=== PATIENT | female | born 1945 | race Caucasian/White ===

== ENCOUNTER 2019-05-17 11:03 | Inpatient (IN) ==
[2019-05-17] MEDS ORDERED: Naloxone 0.4 MG/ML INJ IVP PRN (17:44)
[2019-05-17] MEDS ORDERED: Ondansetron ODT 4 MG TAB.RAPDIS SL PRN (17:44)
[2019-05-17] MEDS ORDERED: 0.9 % Sodium Chloride 1,000 ML IVC SCH (17:45)
[2019-05-17] MEDS ORDERED: 0.9 % Sodium Chloride 1,000 ML IVC ONE (17:47)
[2019-05-17] MEDS ORDERED: Ipratropium/Albuterol Neb 3 ML IH PRN (17:47)
[2019-05-17] MEDS ORDERED: *HR* LORazepam 2 MG/ML VIAL IVP PRN ×3 (18:09)
[2019-05-17 18:51] LABS: Alanine Aminotransferase 24 Units/L (7-52); Albumin 2.9 g/dL (3.5-5.7); Alkaline Phosphatase 148 Units/L (34-104); Aspartate Amino Transferase 16 Units/L (13-39); BUN/Creatinine Ratio 12 (6-26); Bilirubin,Total 0.6 mg/dL (0.3-1.0); Blood Urea Nitrogen 45 mg/dL (8-23); Calcium 7.9 mg/dL (8.6-10.3); Carbon Dioxide 18 mEq/L (23-29); Chloride 95 mEq/L (98-107); Ethanol < 10 mg/dL (Less than 10); Globulin 2.8 g/dL (2.4-3.5); Glucose 111 mg/dL (70-105); Osmolality,Calculated 270 (280-300); Potassium 3.8 mEq/L (3.5-5.1); Sodium 124 mEq/L (136-145); Total Protein 5.7 g/dL (6.4-8.9); eGFR For African Americans 14 (> 60); eGFR For Non-African Americans 11 (> 60)
[2019-05-17 19:11] LABS: Thyroid Stimulating Hormone 7.229 mcIU/mL (0.340-5.600)
[2019-05-17 19:39] LABS: Hematocrit 35.5 % (35.3-44.9); Hemoglobin 12.4 g/dL (11.5-15.4); Lymphocytes # 0.5 K/mcL (0.6-4.6); Mean Corpuscular HGB Conc 34.9 g/dL (31.6-35.5); Mean Corpuscular Hemoglobin 30.3 pg (28.0-33.3); Mean Corpuscular Volume 86.8 fL (83.0-100.0); Mean Platelet Volume 11.1 fL (9.4-12.4); Platelet Count 218 K/mcL (140-400); Red Blood Count 4.09 M/mcL (3.82-4.97); Red Cell Distribution Width 14.3 % (11.5-14.5); White Blood Count 12.8 K/mcL (4.3-11.1)
[2019-05-17 20:04] LABS: Eosinophils # 0.5 K/mcL (0.0-0.6); Monocytes # 0.8 K/mcL (0.0-1.3); Platelet Estimate Normal (Normal)
[2019-05-17] MEDS ORDERED: cephALEXin 500 MG CAPSULE PO SCH (21:00)
[2019-05-18 03:16] LABS: Amphetamine Screen,Urine Negative ng/mL (Cutoff=1000); Barbiturate Screen,Urine Negative ng/mL (Cutoff=200); Benzodiazepines Screen,Urine Negative ng/mL (Cutoff=200); Cannabinoid Screen,Urine Negative ng/mL (Cutoff = 50); Cocaine Screen,Urine Negative ng/mL (Cutoff= 300); Opiate Screen,Urine Negative ng/mL (Cutoff=300); Phencyclidine Screen,Urine Negative ng/mL (Cutoff=25)
[2019-05-18 03:21] LABS: Bilirubin,Urine Negative (Negative); Blood,Urine Moderate (Negative); Clarity,Urine Cloudy (Clear); Color,Urine Yellow (Yellow); Glucose,Urine (UA) Normal (Normal); Ketones,Urine Negative (Negative); Leukocyte Esterase,Urine Large (Negative); Nitrite,Urine Negative (Negative); Protein,Urine 30 mg/dL (Neg-Trace); Specific Gravity,Urine 1.009 (1.010-1.025); Urobilinogen,Urine Normal (Normal)
[2019-05-18 03:22] LABS: Hyaline Casts,Urine None Seen per lpf (None-Few); Squamous Epithelial Cell,Urine Many per lpf (None-Few); WBC,Urine TNTC per hpf (0-3)
[2019-05-18 03:32] LABS: Amorphous Sediment,Urine Few (Few); Bacteria,Urine Few per hpf (None-Few)
[2019-05-18] MEDS: *HR* Heparin 5,000 UNIT/ML VIAL SQ SCH ×2 (05:13→18:26)
[2019-05-18 07:08] LABS: Hematocrit 34.1 % (35.3-44.9); Hemoglobin 11.9 g/dL (11.5-15.4); Mean Corpuscular HGB Conc 34.9 g/dL (31.6-35.5); Mean Corpuscular Hemoglobin 31.5 pg (28.0-33.3); Mean Corpuscular Volume 90.2 fL (83.0-100.0); Mean Platelet Volume 11.3 fL (9.4-12.4); Platelet Count 201 K/mcL (140-400); Red Blood Count 3.78 M/mcL (3.82-4.97); Red Cell Distribution Width 15.1 % (11.5-14.5); White Blood Count 11.7 K/mcL (4.3-11.1)
[2019-05-18 07:27] LABS: Calcium 7.5 mg/dL (8.6-10.3); Potassium 3.7 mEq/L (3.5-5.1)
[2019-05-18] MEDS ORDERED: 0.9 % Sodium Chloride 1,000 ML IVC ONE (08:14)
[2019-05-18] MEDS: Thiamine (B-1) 100 MG TABLET PO SCH (08:46)
[2019-05-18] MEDS: Vitamin B Complex/Vit C/Vit E 1 EACH TABLET PO SCH (08:47)
[2019-05-18] MEDS: Folic Acid 1 MG TABLET PO SCH (08:47)
[2019-05-18] MEDS: MOM Conc 10 ML UD.LIQ PO PRN (08:47)
[2019-05-18 09:09] LABS: Thyroid Stimulating Hormone 8.857 mcIU/mL (0.340-5.600)
[2019-05-18] MEDS: cefTRIAXone 1,000 MG in Water for inj. (sterile) 10 ML IVP SCH (10:45)
[2019-05-18] MEDS: predniSONE 20 MG TABLET PO SCH (12:57)
[2019-05-18] MEDS: 0.9 % Sodium Chloride 1,000 ML IVC SCH ×2 (13:00→20:21)
[2019-05-19 01:30] LABS: Albumin 2.5 g/dL (3.5-5.7); Bilirubin,Total 0.3 mg/dL (0.3-1.0); Calcium 7.4 mg/dL (8.6-10.3); Globulin 2.6 g/dL (2.4-3.5); Potassium 4.3 mEq/L (3.5-5.1); Total Protein 5.1 g/dL (6.4-8.9)
[2019-05-19] MEDS: 0.9 % Sodium Chloride 1,000 ML IVC SCH ×3 (04:34→16:18)
[2019-05-19] MEDS: *HR* Heparin 5,000 UNIT/ML VIAL SQ SCH ×2 (04:38→16:18)
[2019-05-19] MEDS: Thiamine (B-1) 100 MG TABLET PO SCH (08:38)
[2019-05-19] MEDS: Vitamin B Complex/Vit C/Vit E 1 EACH TABLET PO SCH (08:38)
[2019-05-19] MEDS: Folic Acid 1 MG TABLET PO SCH (08:38)
[2019-05-19] MEDS: predniSONE 20 MG TABLET PO SCH (08:39)
[2019-05-19] MEDS: cefTRIAXone 1,000 MG in Water for inj. (sterile) 10 ML IVP SCH (09:46)
[2019-05-19] MEDS ORDERED: Albuterol 2.5 MG/3 ML NEBULIZER IH PRN (12:09)
[2019-05-19] MEDS: Sodium Bicarbonate 75 MEQ in 0.45 % Sodium Chloride 1,000 ML IVC SCH ×2 (12:47→21:44)
[2019-05-19] MEDS: Ipratropium/Albuterol Neb 3 ML IH SCH ×3 (14:35→20:13)
[2019-05-19] MEDS ORDERED: Sennosides/Docusate Sodium TABLET PO PRN (16:31)
[2019-05-19 17:58] LABS: Protein/Creatinine Ratio,Urine 0.64 mg/mg (0.00-0.20); Sodium, Urine 35.3 mEq/L
[2019-05-20] MEDS: Ipratropium/Albuterol Neb 3 ML IH SCH ×7 (00:15→23:21)
[2019-05-20 05:03] LABS: INR 1.2; Prothrombin Time 13.7 Seconds (9.4-12.1)
[2019-05-20 05:06] LABS: Activated Partial Thrombo Time 30.7 Seconds (26.0-36.0)
[2019-05-20 05:17] LABS: Albumin 2.6 g/dL (3.5-5.7); Bilirubin,Total 0.3 mg/dL (0.3-1.0); Calcium 7.5 mg/dL (8.6-10.3); Globulin 2.7 g/dL (2.4-3.5); Potassium 3.5 mEq/L (3.5-5.1); Rheumatoid Factor 11 IU/mL (Less than 14); Total Protein 5.3 g/dL (6.4-8.9)
[2019-05-20 05:18] LABS: Complement C3 100 mg/dL (87-200)
[2019-05-20 05:56] LABS: Hepatitis B Surface Antigen Nonreactive (Nonreactive)
[2019-05-20 06:25] LABS: Hepatitis C Virus Antibody Nonreactive (Nonreactive)
[2019-05-20 06:26] LABS: Hepatitis B Core IgM Nonreactive (Nonreactive)
[2019-05-20 06:27] LABS: Hepatitis A Antibody IgM Nonreactive (Nonreactive)
[2019-05-20] MEDS: *HR* Heparin 5,000 UNIT/ML VIAL SQ SCH ×2 (06:58→15:18)
[2019-05-20] MEDS: 0.9 % Sodium Chloride 1,000 ML IVC SCH ×2 (07:25→15:20)
[2019-05-20] MEDS: cefTRIAXone 1,000 MG in Water for inj. (sterile) 10 ML IVP SCH (10:17)
[2019-05-20] MEDS: Vitamin B Complex/Vit C/Vit E 1 EACH TABLET PO SCH (10:18)
[2019-05-20] MEDS: Thiamine (B-1) 100 MG TABLET PO SCH (10:18)
[2019-05-20] MEDS: Folic Acid 1 MG TABLET PO SCH (10:18)
[2019-05-20] MEDS: Sodium Bicarbonate 75 MEQ in 0.45 % Sodium Chloride 1,000 ML IVC SCH (15:13)
[2019-05-20] MEDS: MOM Conc 10 ML UD.LIQ PO PRN (20:28)
[2019-05-21] MEDS: Sodium Bicarbonate 75 MEQ in 0.45 % Sodium Chloride 1,000 ML IVC SCH (01:01)
[2019-05-21 02:52] LABS: Magnesium 2.5 mg/dL (1.6-2.6); Phosphorous 4.2 mg/dL (2.7-4.5)
[2019-05-21 02:54] LABS: Albumin 2.5 g/dL (3.5-5.7); Albumin/Globulin Ratio 0.9 (1.1-2.2); Bilirubin,Total 0.3 mg/dL (0.3-1.0); Calcium 7.6 mg/dL (8.6-10.3); Globulin 2.7 g/dL (2.4-3.5); Potassium 3.6 mEq/L (3.5-5.1); Total Protein 5.2 g/dL (6.4-8.9)
[2019-05-21 03:59] LABS: Basophils % 0.3 %; Eosinophils # 0.2 K/mcL (0.0-0.6); Eosinophils % 1.6 %; Hemoglobin 10.3 g/dL (11.5-15.4); Immature Granulocytes % 1.8 % (0-4); Lymphocytes # 0.7 K/mcL (0.6-4.6); Mean Corpuscular HGB Conc 35.5 g/dL (31.6-35.5); Mean Corpuscular Hemoglobin 30.6 pg (28.0-33.3); Mean Corpuscular Volume 86.1 fL (83.0-100.0); Mean Platelet Volume 9.5 fL (9.4-12.4); Monocytes # 1.3 K/mcL (0.0-1.3); Monocytes % 11.1 %; Neutrophils # 9.4 K/mcL (1.6-8.9); Platelet Count 372 K/mcL (140-400); Red Blood Count 3.37 M/mcL (3.82-4.97); Red Cell Distribution Width 15.4 % (11.5-14.5); Segmented Neutrophils % 79.2 %; White Blood Count 11.9 K/mcL (4.3-11.1)
[2019-05-21] MEDS: Ipratropium/Albuterol Neb 3 ML IH SCH ×3 (04:09→10:59)
[2019-05-21 04:41] LABS: Platelet Estimate Normal (Normal)
[2019-05-21] MEDS: *HR* Heparin 5,000 UNIT/ML VIAL SQ SCH (05:24)
[2019-05-21 07:23] VITALS: BP 123/63
[2019-05-21] MEDS ORDERED: predniSONE 20 MG TABLET PO SCH (09:00)
[2019-05-21] MEDS: Vitamin B Complex/Vit C/Vit E 1 EACH TABLET PO SCH (09:26)
[2019-05-21] MEDS: Thiamine (B-1) 100 MG TABLET PO SCH (09:26)
[2019-05-21] MEDS: Folic Acid 1 MG TABLET PO SCH (09:26)
[2019-05-21 15:20] LABS: ANA IgG by ELISA NONE DETECTED (None Detected)
[2019-05-22 09:56] LABS: Serine Protease-3 Antibody 0 AU/mL (0-19)
[2019-05-22 09:56] LABS: GBM IgG Multiplex Bead Assay 0 AU/mL (0-19); Glomerular Basement Memb IgG NEGATIVE (Negative)
[2019-05-22 10:30] LABS: Alpha 2 Globulin (PEP) 0.86 g/dL (0.48-1.05); Beta Globulin (PEP) 0.56 g/dL (0.48-1.10)
[2019-05-22 11:36] LABS: IFE Reflexed NOT DONE
== END 2019-05-21 13:07 | disposition home or self-care (01) | DRG 683 ==
LOC: 3BNU → SUATTDRO 15:45 → 3BNU 05-18 10:54
PROVIDERS: ADMIT Family Medicine; ATTEND Family Medicine